=== PATIENT | male | born 1955 | race Caucasian/White ===

== ENCOUNTER 2018-09-17 14:26 | Inpatient (IN) ==
--- NOTE | 2018-09-18 20:11 | P.HP ---
History of Present Illness Service: CP Adult med Primary Care Physician: UNKNOWN Chief Complaint: Transfer for possible coronary artery bypass graft History of Present Illness: Pleasant 63-year-old relatively healthy male who generally takes no medications presents as transfer from [facility] for evaluation for multivessel coronary artery disease. Apparently he was accepted in transfer earlier by cardiovascular thoracic surgery and they requested he be admitted to the medicine service. Patient denies any chest pain or shortness of breath. He reports that his current medical course began August 25 when he was hiking in the [place] and experienced chest pressure for approximately 30 minutes. At that time he reportedly contacted his long-term general practitioner in [facility] who directed him to the ER. Patient was already in a base camp in the [place] and did not seek immediate medical attention. Symptoms resolved and he actually hiked 12 miles the next day with no symptoms. He finished his trip to the [place] and then went to [facility] where he stowed his sailboat and then came to [place] approximately 1 week ago where he began a cardiac workup. He acknowledges that he has had 2 or 3 episodes of some chest pressure since August 25. He underwent outpatient Lexiscan stress test earlier this week which was indicative of reversible ischemia in the anterior septal area. He had normal ejection fraction. He had subsequent heart catheterization done by Dr. Del Angel yesterday and patient reports that he had 3-4 vessels that had disease. I do not have the official cardiac catheter report at this point but it is noted the patient was transferred here for further evaluation by cardiovascular thoracic surgery. Again patient has been chest pain-free during this hospitalization. He was actually chest pain-free during his stress test as well as pre-and post cardiac catheterization. He reports that he walks at least 10 km/day and is quite active. He and his are planning to sail around the world soon. - Diagnosis (1) Coronary artery disease Inpatient Certification: I certify that the inpatient services were ordered in accordance with Medicare regulations governing the order. This includes certification that hospital inpatient services are reasonable and necessary and in the case of services not specified as inpatient-only under 42 CFR 419.22(n), that they are appropriately provided as inpatient services in accordance to with the 2-midnight benchmark under 43 CFR 412.3(e) Estimated Total Length of Stay (Days): 5 Plans for Post Hospital Care: Not yet determined Review of Systems Constitutional: Reports fatigue, Denies anorexia, Denies body ache(s), Denies chills, Denies daytime sleepiness, Denies excessive sweating, Denies fever(s), Denies headache(s), Denies increased appetite, Denies lack of energy, Denies malaise, Denies night sweats, Denies weakness, Denies weight gain, Denies weight loss, Denies other Eyes: Denies blind spots, Denies blurry vision, Denies bulging eyes, Denies change in vision, Denies double vision, Denies discharge, Denies dry eyes, Denies floaters, Denies irritation, Denies itchy eyes, Denies loss of vision, Denies pain, Denies requires corrective lenses, Denies sensitivity to light, Denies other Ears, Nose, Mouth, and Throat: Denies abnormal hearing, Denies bleeding gums, Denies bad breath, Denies change in voice, Denies dental pain, Denies difficulty swallowing, Denies dizziness, Denies dry mouth, Denies ear discharge , Denies ear pain, Denies facial pain, Denies headache(s), Denies hearing loss, Denies hoarseness, Denies lip swelling, Denies nosebleed, Denies mouth lesions, Denies mouth pain, Denies nasal congestion, Denies nasal discharge, Denies nasal obstruction, Denies nasal trauma, Denies neck lump, Denies neck pain, Denies nose pain, Denies pain with swallowing, Denies poor balance, Denies post nasal drip, Denies ringing in the ears, Denies sinus pain, Denies sinus pressure , Denies sore throat, Denies throat swelling, Denies tongue swelling, Denies other Cardiovascular: Reports chest pain, Reports chest pain with activity, Reports shortness of breath with activity, Denies chest pain at rest, Denies excessive sweating, Denies fainting, Denies fast heart rate, Denies foot swelling, Denies generalized swelling, Denies irregular heart rhythm, Denies leg pain with activity, Denies leg sores, Denies leg swelling, Denies lightheadedness, Denies radiating jaw, neck or arm pain, Denies rapid, pounding, or irregular heartbeat , Denies shortness of breath, Denies shortness of breath when lying down, Denies shortness of breath causing sudden awakening, Denies slow heart rate, Denies other Respiratory: Reports shortness of breath, Reports shortness of breath with activity, Denies change in phlegm color, Denies chest congestion, Denies cough, Denies coughing up blood, Denies excessive phlegm production, Denies pain on inspiration, Denies pain with cough, Denies snoring, Denies stridor, Denies wheezing, Denies other Gastrointestinal: Denies abdominal pain, Denies belching, Denies black, tarry stools, Denies bloating, Denies bright, red blood in stools, Denies change in bowel habits, Denies constant urge to pass stool, Denies change in stools, Denies coffee ground vomit, Denies constipation, Denies cramping, Denies difficulty swallowing, Denies excessive passing of gas, Denies feeling full early, Denies heartburn, Denies incontinent of stools, Denies loose stools, Denies nausea, Denies pain with swallowing, Denies vomiting, Denies vomiting blood, Denies other Genitourinary: Denies blood in semen, Denies blood in urine, Denies decreased urination, Denies difficulty urinating, Denies difficulty with ejaculations, Denies erectile dysfunction, Denies genital lesions, Denies genital pain, Denies painful urination, Denies side pain, Denies frequent nighttime urination , Denies painful ejaculations, Denies penile discharge, Denies scrotal swelling , Denies testicle lump, Denies testicle pain, Denies urinary frequency, Denies urinary hesitancy, Denies urinary incontinence, Denies urinary urgency, Denies other Musculoskeletal: Denies abnormal walking, Denies back pain, Denies body aches, Denies decreased muscle mass, Denies deformity, Denies joint pain, Denies joint swelling, Denies limited joint movement, Denies loss of height, Denies muscle cramps, Denies muscle weakness, Denies neck pain, Denies numbness, Denies radiating pain into limb, Denies stiffness, Denies tingling, Denies other Neurologic: Denies abnormal hearing, Denies abnormal movements, Denies abnormal speech, Denies abnormal walking, Denies behavioral changes, Denies burning sensations, Denies confusion, Denies dizziness, Denies fainting, Denies frequent falls, Denies headache(s), Denies lack of coordination, Denies localized weakness, Denies loss of vision, Denies memory loss, Denies numbness, Denies other visual disturbances, Denies radiating pain, Denies restless legs, Denies convulsions, Denies seizure-like activity, Denies sensory deficit, Denies tingling, Denies tingling/numbness/burning sensations, Denies tremor(s), Denies unsteadiness, Denies weakness, Denies other Psychiatric: Denies abnormal sleep pattern, Denies anxiety, Denies behavioral changes, Denies change in appetite, Denies change in sex drive, Denies confusion , Denies depression, Denies difficulty concentrating, Denies hearing things others do not hear, Denies hopelessness, Denies irritability, Denies lack of enjoyment, Denies memory loss, Denies mood swings, Denies panic attacks, Denies paranoia, Denies seeing things others do not see, Denies sensing things others do not sense, Denies tactile hallucinations, Denies thoughts of hurting/killing others, Denies thoughts of hurting/killing yourself, Denies other Endocrine: Denies cold intolerance, Denies excessive sweating, Denies flushing, Denies heat intolerance, Denies increased hunger, Denies increased thirst, Denies increased urination, Denies rapid, pounding, or irregular heartbeat, Denies other PMFSH - History History Provided By: Patient - Medical History Medical History: Medical History (Last Updated 09/18/18 @ 20:04 by Rohan Salmeron MD, PhD) H/O fracture of humerus High cholesterol Obesity Sialadenitis - Surgical History Surgical History: Surgical History (Last Updated 09/18/18 @ 17:33 by Winifred Caballero RN) Shoulder joint replacement status - Family History Family History: Family History (Last Updated 09/18/18 @ 20:05 by Rohan Salmeron MD, PhD) Brother Coronary artery disease Father Coronary artery disease Grandparent Coronary artery disease - Social History I have reviewed the patient's Social History: Yes - Tobacco History Second Hand Smoke Exposure: No Tobacco Use In Past 30 Days: No Smoking Status: Former smoker Tobacco Type: Cigarettes Packs Per Day: 1.5 Years Smoked: 15 Smoking End Date: 1992 - Alcohol History How Often Do You Have a Drink Containing Alcohol: 2 to 4 times a month - Substance Use History Substance History: No History of Abuse - Travel History History of Recent Travel: Yes Recent Travel in the [place] Within the Last 8 Weeks: Yes Recent Travel Out of the Country Within the Last 8 Weeks: No Medications and Allergies Active Medications: Active Medications Acetaminophen (Tylenol) 650 mg PO Q4H PRN PRN Reason: Temp > 100.4 Al Hydroxide/Mg Hydroxide (Milk Of Magnjulieta Liq) 30 ml PO Q12H PRN PRN Reason: Mild Constipation Ondansetron HCl (Zofran Inj) 4 mg IV.PUSH Q6H PRN PRN Reason: NAUSEA OR VOMITING Senna/Docusate Sodium (Jessica-Colace) 1 tab PO BID EDI Sodium Chloride (Ns Flush) 2 ml IV.FLUSH BID EDI Sodium Chloride (Ns Flush) 2 ml IV.FLUSH PRN PRN PRN Reason: FLUSH AFTER USING IV ACCESS Allergies Allergy/AdvReac Type Severity Reaction Status Date / Time aspirin Allergy Anaphylaxis Verified 09/18/18 17:13 NSAIDS (Non-Steroidal Allergy Anaphylaxis Verified 09/18/18 17:13 Anti-Inflamma Penicillins Allergy Anaphylaxis Verified 09/18/18 17:13 beer AdvReac Rash Uncoded 09/18/18 17:13 Home Medications Medication Instructions Recorded Confirmed Type No Known Home Medications 09/18/18 09/18/18 History Exam Vital signs: Vital Signs 09/18/18 17:29 09/18/18 19:49 Temperature 98.1 F 98.1 F Pulse Rate 67 71 Respiratory Rate 16 14 Blood Pressure 158/77 H Pulse Oximetry 96 Intake & Output 09/18/18 09/18/18 09/19/18 06:59 18:59 06:59 Intake Total 480 / 480 Balance 480 / 480 Weight 106.2 kg Intake: Oral 480 / 480 Other: Weight On Admission 106.2 kg Narrative: GENERAL: No acute distress, alert and oriented, cooperative. Muscular build. SKIN: Warm and dry. HEAD: Atraumatic. Normocephalic. EYES: Pupils equal and round. No scleral icterus. No injection or drainage. ENT: No nasal bleeding or discharge. Mucous membranes pink and moist. NECK: Trachea midline. No JVD. CARDIOVASCULAR: Regular rate and rhythm. No murmur. RESPIRATORY: No accessory muscle use. Clear to auscultation. Breath sounds equal bilaterally. GASTROINTESTINAL: Abdomen soft, non-tender, nondistended. Hepatic and splenic margins not palpable. MUSCULOSKELETAL: Extremities without clubbing, cyanosis, or edema. No obvious deformities. NEUROLOGICAL: Awake and alert. No obvious cranial nerve deficits. Motor grossly within normal limits. Five out of 5 muscle strength in the arms and legs. Normal speech. PSYCHIATRIC: Appropriate mood and affect; insight and judgment normal. Caprini VTE Risk Assessment Caprini VTE Risk Assessment: No/Low Risk (score <= 1) Caprini Risk Assessment Model: Point Value = 1 Point Value = 2 Point Value = 3 Point Value = 5 Age 41-60 Minor surgery BMI > 25 kg/m2 Swollen legs Varicose veins or History of unexplained or recurrent spontaneous Oral contraceptives or hormone replacement Sepsis (< 1 month) Serious lung disease, including pneumonia (< 1 month) Abnormal pulmonary function Acute myocardial infarction Congestive heart failure (< 1 month) History of inflammatory bowel disease Medical patient at bed rest Age 61-74 Arthroscopic surgery Major open surgery (> 45 min) Laparoscopic surgery (> 45 min) Malignancy Confined to bed (> 72 hours) Immobilizing plaster cast Central venous access Age >= 75 History of VTE Family history of VTE Factor V Leiden Prothrombin [id number] Lupus anticoagulant Anticardiolipin antibodies Elevated serum homocysteine Heparin-induced thrombocytopenia Other congenital or acquired thrombophilia Stroke (< 1 month) Elective arthroplasty Hip, pelvis, or leg fracture Acute spinal cord injury (< 1 month) Prophylaxis Regimen: Total Risk Factor Score Risk Level Prophylaxis Regimen 0-1 Low Early ambulation 2 Moderate Order ONE of the following: *Sequential Compression Device (SCD) *Heparin 5000 units SQ BID 3-4 Higher Order ONE of the following medications: *Heparin 5000 units SQ TID *Enoxaparin/Lovenox 40 mg SQ daily (WT < 150 kg, CrCl > 30 mL/min) *Enoxaparin/Lovenox 30 mg SQ daily (WT < 150 kg, CrCl > 10-29 mL/min) *Enoxaparin/Lovenox 30 mg SQ BID (WT < 150 kg, CrCl > 30 mL/min) AND/OR *Sequential Compression Device (SCD) 5 or more Highest Order ONE of the following medications: *Heparin 5000 units SQ TID (Preferred with Epidurals) *Enoxaparin/Lovenox 40 mg SQ daily (WT < 150 kg, CrCl > 30 mL/min) *Enoxaparin/Lovenox 30 mg SQ daily (WT < 150 kg, CrCl > 10-29 mL/min) *Enoxaparin/Lovenox 30 mg SQ BID (WT < 150 kg, CrCl > 30 mL/min) AND *Sequential Compression Device (SCD) Assessment and Plan - Assessment (1) Coronary artery disease Code(s): I25.10 - Atherosclerotic heart disease of [place] coronary artery without angina pectoris Status: Acute Plan: Reportedly has multiple vessel disease. Cardiovascular thoracic surgery to evaluate. Quite stable presently and actually chest pain-free during entire hospitalization. Not sure of lipid values. Provide nitro as needed. Possibly inpatient eval and d/c for performance of CABG after Pilar per d/w pt. - Plan Code Status: full Discussed Condition With: Pt and Dr Julian
[2018-09-18] MEDS: Senna/Docusate Sodium 8.6/50 MG Tablet PO SCH (20:40)
[2018-09-19 05:25] LABS: Baso % (Auto) 0.5 % (0.0-2.0); Eos # (Auto) 0.2 th/mm3 (0.0-0.4); Eos % (Auto) 1.9 % (0.0-4.0); Hematocrit 44.1 % (39.0-51.0); Hemoglobin 15.9 gm/dL (13.0-17.0); Lymph # (Auto) 3.5 th/mm3 (1.0-4.8); Lymph % (Auto) 32.2 % (9.0-44.0); Mean Corpuscular HGB Conc 35.9 % (32.0-36.0); Mean Corpuscular Hemoglobin 30.5 pg (27.0-34.0); Mean Corpuscular Volume 84.9 fL (80.0-100.0); Mean Platelet Volume 8.4 fL (7.0-11.0); Mono # (Auto) 0.8 th/mm3 (0.0-0.9); Neut # (Auto) 6.3 th/mm3 (1.8-7.7); Neut % (Auto) 58.4 % (16.0-70.0); Platelet Count 198 th/mm3 (150-450); Red Cell Distribution Width 12.9 % (11.6-17.2); White Blood Count 10.8 th/mm3 (4.0-11.0)
[2018-09-19 05:37] LABS: Calcium 8.3 mg/dL (8.5-10.1); Carbon Dioxide 22.8 meq/L (21.0-32.0); Potassium 3.6 meq/L (3.5-5.1)
[2018-09-19 05:41] LABS: Chol/HDL Ratio 7.6 Ratio
[2018-09-19] MEDS: Senna/Docusate Sodium 8.6/50 MG Tablet PO SCH ×2 (09:32→21:26)
[2018-09-19 11:32] LABS: Hemoglobin A1c 5.7 % (4.3-6.0)
--- NOTE | 2018-09-19 11:42 | XR ---
EXAM DATE: 09/19/2018 11:21 AM EST AGE/SEX: 63 years / Male INDICATIONS: Evaluate for pneumonia, pneumothorax, or communicable disease. Pre-OP for cardiac surge ry. CLINICAL DATA: This is the patient's initial encounter. Patient reports that signs and symptoms have been present for 1 day and indicates a pain score of 0/10. MEDICAL/SURGICAL HISTORY: None. None. COMPARISON: No prior exams available for comparison. FINDINGS: PA and lateral views of the chest demonstrate the lungs to be symmetrically aerated without evidence of mass, infiltrate or effusion. Mild peribronchial thickening is present in the bases. The cardiomed iastinal contours are unremarkable. Previous right shoulder arthroplasty CONCLUSION: Negative for an acute process Electronically signed by: Antoine Rubi MD Board Certified Radiologist 09/19/2018 11:41 AM EST
--- NOTE | 2018-09-19 14:23 | US ---
EXAM DATE: 09/19/2018 2:20 PM EST AGE/SEX: 63 years / Male INDICATIONS: Pre-op for cardiac surgery. CLINICAL DATA: This is the patient's initial encounter. Patient reports that signs and symptoms have been present for 1 day and indicates a pain score of 0/10. MEDICAL/SURGICAL HISTORY: . High cholesterol. Obesity. Sialadenitis. . Right shoulder replac ement. COMPARISON: No prior exams available for comparison. VELOCITY PARAMETERS: ICA/CCA Ratio: Right 1.3 , Left 0.9 ICA: Right 117 cm/sec, Left 105 cm/sec CCA: Right 93 cm/sec, Left 119 cm/sec ECA: Right 136 cm/sec, Left 91 cm/sec Vertebral: Right 57 cm/sec antegrade, Left 27 cm/sec antegrade FINDINGS: RIGHT CAROTID: There is no evidence for a hemodynamically significant carotid stenosis. Minimal int imal hyperplasia is present with scattered calcific plaque. LEFT CAROTID: There is no evidence for a hemodynamically significant carotid stenosis. Minimal inti mal hyperplasia is present with scattered calcific plaque. Flow is antegrade in both vertebral arteries. There are no ancillary masses or adenopathy. CONCLUSION: Negative examination for a hemodynamically significant carotid stenosis. Antoine Rubi MD FACR Electronically signed by: Antoine Rubi MD Board Certified Radiologist 09/19/2018 2:22 PM EST
--- NOTE | 2018-09-19 14:29 | US ---
EXAM DATE: 09/19/2018 2:23 PM EST AGE/SEX: 63 years / Male INDICATIONS: Preop cardiac surgery. CLINICAL DATA: This is the patient's initial encounter. Patient reports that signs and symptoms have been present for 1 day and indicates a pain score of 0/10. MEDICAL/SURGICAL HISTORY: . High cholesterol. Obesity. Sialadenitis. . Right shoulder surger y. COMPARISON: No prior exams available for comparison. TECHNIQUE: Venous ultrasound of both lower extremities was performed from the inguinal ligament to t he proximal calf. Real-time, color Doppler and spectral tracing, compression and augmentation techni ques were used. FINDINGS: Right Leg: Normal compression of the deep venous system from the inguinal region to the proximal paco f. No echogenic clot is seen. Normal response of the venous system to augmentation and respiration. Left Leg: Normal compression of the deep venous system from the inguinal region to the proximal calf . No echogenic clot is seen. Normal response of the venous system to augmentation and respiration. Other: None. CONCLUSION: 1. The study is negative for bilateral lower extremity deep venous thrombosis. Electronically signed by: Torsten Muñoz MD Board Certified Radiologist 09/19/2018 2:28 PM EST
--- NOTE | 2018-09-19 14:33 | US ---
EXAM DATE: 09/19/2018 2:29 PM EST AGE/SEX: 63 years / Male INDICATIONS: Preop cardiac surgery. CLINICAL DATA: This is the patient's initial encounter. Patient reports that signs and symptoms have been present for 1 day and indicates a pain score of 0/10. MEDICAL/SURGICAL HISTORY: . High cholesterol. Obesity. Sialadenitis. . Right shoulder replac ement. COMPARISON: [facility], [place] VENOUS DOPPLER LEG BI, 09/19/2018. . MEASUREMENTS: RIGHT THIGH: Proximal:__7 mm Mid:__ Non-visualized Distal:__Non-visualized LEFT THIGH: Proximal:__5 mm Mid:__3 mm Distal:__Non-visualized RIGHT CALF: Proximal:__Thrombosed Mid:__1 mm Distal:__2 mm LEFT CALF: Proximal:__1 mm Mid:__1 mm Distal:__Non-visualized FINDINGS: The venous system of the lower extremities are patent by color Doppler imaging. Measurements of the leg veins (in mm) are listed above. CONCLUSION: 1. Venous mapping as above Electronically signed by: Antoine Rubi MD Board Certified Radiologist 09/19/2018 2:31 PM EST
--- NOTE | 2018-09-19 14:33 | P.PNCV ---
- Note Subjective/Hospital Course: pt seen and evaluated, full consult to follow sts risk score discussed with pt RISK SCORES Procedure: Isolated CAB CALCULATE Risk of Mortality: 0.482% Renal Failure: 0.520% Permanent Stroke: 0.600% Prolonged Ventilation: 2.784% DSW Infection: 0.136% Reoperation: 1.495% Morbidity or Mortality: 4.716% Short Length of Stay: 69.922% Long Length of Stay: 1.513% Objective: Vital Signs - 24 hr 09/18/18 17:29 09/18/18 19:00 09/18/18 19:49 Temperature 98.1 F 98.1 F Pulse Rate 67 61 71 Respiratory Rate 16 14 Blood Pressure 158/77 H Pulse Oximetry 96 09/18/18 20:00 09/18/18 21:00 09/18/18 22:00 Temperature Pulse Rate 70 74 57 L Respiratory Rate Blood Pressure Pulse Oximetry 09/18/18 23:00 09/18/18 23:38 09/19/18 00:00 Temperature 99.0 F Pulse Rate 59 L 63 58 L Respiratory Rate 16 Blood Pressure 125/65 Pulse Oximetry 94 L 09/19/18 01:00 09/19/18 02:00 09/19/18 03:00 Temperature Pulse Rate 58 L 58 L 55 L Respiratory Rate Blood Pressure Pulse Oximetry 09/19/18 04:00 09/19/18 05:00 09/19/18 06:00 Temperature 98.0 F Pulse Rate 54 L 57 L 58 L Respiratory Rate 18 Blood Pressure 103/57 L Pulse Oximetry 97 09/19/18 08:30 09/19/18 09:32 09/19/18 10:01 Temperature 98.2 F Pulse Rate 72 73 63 Respiratory Rate 16 Blood Pressure 115/72 Pulse Oximetry 09/19/18 11:31 09/19/18 12:11 09/19/18 12:44 Temperature 98.3 F Pulse Rate 77 70 65 Respiratory Rate 16 Blood Pressure 139/63 Pulse Oximetry 09/19/18 13:39 09/19/18 14:18 Temperature Pulse Rate 66 66 Respiratory Rate Blood Pressure Pulse Oximetry Labs: Laboratory Results - last 12 hr 09/19/18 09/19/18 09/19/18 03:56 03:56 03:56 WBC 10.8 RBC 5.20 Hgb 15.9 Hct 44.1 MCV 84.9 MCH 30.5 MCHC 35.9 RDW 12.9 Plt Count 198 MPV 8.4 Neut % (Auto) 58.4 Lymph % (Auto) 32.2 Mercer % (Auto) 7.0 Eos % (Auto) 1.9 Baso % (Auto) 0.5 Neut # (Auto) 6.3 Lymph # (Auto) 3.5 Mercer # (Auto) 0.8 Eos # (Auto) 0.2 Baso # (Auto) 0.0 WBC Differential . Differential Comment Auto diff final APTT 28.9 Sodium 140 Potassium 3.6 Chloride 108 H Carbon Dioxide 22.8 Anion Gap 9 BUN 19 H Creatinine 0.92 Estimated GFR 84 L Random Glucose 95 Hemoglobin A1c Calcium 8.3 L Triglycerides 257 H Cholesterol 213 H LDL Cholesterol, Calc 134 H HDL Cholesterol 28.0 L Cholesterol/HDL Ratio 7.60 Blood Type Blood Type Recheck Antibody Screen 09/19/18 09/19/18 10:31 10:31 WBC RBC Hgb Hct MCV MCH MCHC RDW Plt Count MPV Neut % (Auto) Lymph % (Auto) Mercer % (Auto) Eos % (Auto) Baso % (Auto) Neut # (Auto) Lymph # (Auto) Mercer # (Auto) Eos # (Auto) Baso # (Auto) WBC Differential Differential Comment APTT Sodium Potassium Chloride Carbon Dioxide Anion Gap BUN Creatinine Estimated GFR Random Glucose Hemoglobin A1c 5.7 Calcium Triglycerides Cholesterol LDL Cholesterol, Calc HDL Cholesterol Cholesterol/HDL Ratio Blood Type B Positive Blood Type Recheck Required Antibody Screen Negative Result Diagrams: 09/19/18 03:56 09/19/18 03:56
[2018-09-19] MEDS ORDERED: Dextrose 50% in Water 50 ML Vial IV.PUSH PRN (15:14)
--- NOTE | 2018-09-19 15:18 | MB ---
cc: Ronda Collado APRN DATE: 09/19/2018 HISTORY OF PRESENT ILLNESS: A 63-year-old male; patient of Dr. Cortez, also Dr. Del Angel, who had recently been hiking in [place] in the [place] in July; developed some midsternal chest discomfort, felt like somebody pushing a fist into his chest. There was discomfort; lasted about 15-20 minutes. He rested, went back and continued hiking and it occurred again the next day for a short time. Due to his very high activity level, he normally walks 6 miles a day, he decided to have a complete workup and discussed this with his primary care physician. He finished his trip to the [place] and went to [place], [place], where he has on a sailboat, and then came to [place] to have this cardiac workup. The patient underwent outpatient Lexiscan, which showed evidence for inducible ischemia in the anterolateral apical segment. Ejection fraction of 65%. There was some mild anterior hypokinesis. He also underwent an echocardiogram, which showed some mild left ventricular hypertrophy, mild mitral regurgitation, trace aortic insufficiency. He then underwent elective cardiac catheterization by Dr. Del Angel, which showed 4-vessel coronary artery disease; the LAD had an 80% stenosis in the proximal portion; the circumflex had a 99% stenosis in the mid AV-groove portion which was very small; the RCA had a mid portion 95% stenosed. There was also a 90% stenosis in the diagonal branch. The patient was transferred to our facility for cardiothoracic surgery. PAST MEDICAL HISTORY: Includes hyperlipidemia mixed with hypertension. MEDICATIONS: The patient takes no regular medication. SURGICAL HISTORY: Includes colonoscopy, open reduction internal fixation of the right humerus following a fracture, salivary gland surgery, tonsillectomy, vasectomy. ALLERGIES: INCLUDE ASPIRIN, WHICH CAUSES ANAPHYLAXIS AND RASH; PENICILLIN CAUSES RASH. FAMILY HISTORY: No premature coronary artery disease. SOCIAL HISTORY: The patient is , 3 children. Prior history of tobacco abuse, quit 25 years ago. Rare alcohol. Very active; he is a retired electrical apprentice. REVIEW OF SYSTEMS: GENERAL: No night sweats, fever, heat and cold intolerance. SKIN: No psoriasis, itching or hives. HEENT: No blurred vision, hearing loss. RESPIRATORY: Denies shortness of breath. CARDIOVASCULAR: As above in HPI. GASTROINTESTINAL: No diarrhea or vomiting. GENITOURINARY: No burning, frequency, urgency. ENDOCRINOLOGY: No history of diabetes or hypothyroidism. NEUROLOGIC: No history of TIA, CVA or seizure disorder. PHYSICAL EXAMINATION: VITAL SIGNS: Blood pressure 140/60, heart rate of 66, temperature max 98.3. GENERAL: Patient is awake, alert, in no acute distress. HEENT: Head is normocephalic, atraumatic. Pupils equal and reactive. Oral mucosa pink, moist. NECK: Supple. No JVD. CARDIOVASCULAR: Heart sounds S1, S2. Regular rate and rhythm. No audible rubs, murmurs, or gallops. LUNGS: Clear to auscultation. No wheezes, rales or rhonchi. ABDOMEN: Soft, nontender. No masses or organomegaly. EXTREMITIES: No cyanosis, clubbing or edema. SKIN: No rashes or lesions noted. LABORATORY DATA: Lab work shows hemoglobin 15, hematocrit of 44, white cell count of 10, platelet count of 198. Sodium 140, potassium 3.6, BUN of 19, creatinine 0.92, hemoglobin A1c 5.7, triglycerides 257, cholesterol 213, LDL 134, HDL 28. PTT of 28. INR pending. IMPRESSION: This is a 63-year-old male with multivessel coronary artery disease. The cardiac medications have been evaluated by Dr. Liz Aquino. PLAN: Will be for bypass grafting to the LAD, RCA and the diagonal. Procedures, alternatives, and risks have been discussed with the patient. The patient is agreeable to proceed. We will plan for the surgery in the a.m. He will need to be maintained on strict cholesterol modification and blood pressure control. Further plan as per Dr. Aquino. RUSTY Amador MD JRT/frederick , 02:43 PM , 02:55 PM
[2018-09-19 15:51] LABS: INR 1.1 Ratio
[2018-09-19] MEDS ORDERED: Sodium Chlor 0.9% Inj 77.5 ML, Papaverine Inj 60 MG, Nitroglycerin Inj 100 MCG, dilTIAZ... IRRIGATION SCH ×3 (16:00)
[2018-09-19] MEDS ORDERED: Sodium Chloride 0.9% Irr Bot 500 ML, ceFAZolin Inj 500 MG IRRIGATION SCH ×2 (16:00)
[2018-09-19] MEDS ORDERED: ceFAZolin Inj 2,000 MG in Sodium Chlor 0.9% Inj 80 ML IV.SIG SCH (16:00)
[2018-09-19] MEDS ORDERED: Metoprolol Tartrate 25 MG Tablet PO SCH (16:00)
[2018-09-19] MEDS ORDERED: Chlorhexidine 4% Topical 120 APPLIC/120 ML Bottle TOPICAL SCH (16:00)
[2018-09-19] MEDS ORDERED: Insulin Regular (For Infusion) 100 UNIT in Sodium Chlor 0.9% Inj 99 ML IV.CONT PRN (16:00)
[2018-09-19 16:59] LABS: Bilirubin,Urine Negative (Negative); Clarity,Urine Clear (Clear); Color,Urine Yellow (Yellw/Straw); Glucose,Urine (UA) Negative (Negative); Leukocyte Esterase,Urine Negative (Negative); Mucus,Urine Few /lpf (Occasional); Nitrite,Urine Negative (Negative)
[2018-09-19] MEDS ORDERED: ceFAZolin 2 GM IV; once IV.SIG SCH (17:00)
[2018-09-19 17:09] LABS: Albumin 3.6 g/dL (3.4-5.0)
[2018-09-19 17:10] LABS: Total Protein 7.3 g/dL (6.4-8.2)
--- NOTE | 2018-09-19 17:27 | P.PNIM ---
Subjective Interval history: Patient offers no complaints at this time Plan for CABG in AM Physical Exam Vital signs: Last Vital Signs Temp 98.1 F 09/19/18 17:21 Pulse 65 09/19/18 17:21 Resp 18 09/19/18 17:21 BP 127/67 09/19/18 17:21 Pulse Ox 97 09/19/18 04:00 Narrative: GENERAL: This is a well-nourished, well-developed patient, in no apparent distress. CARDIOVASCULAR: Regular rate and rhythm RESPIRATORY: Clear to auscultation. Breath sounds equal bilaterally. No wheezes , rales, or rhonchi. GASTROINTESTINAL: Abdomen soft, non-tender, nondistended. Normal active bowel sounds MUSCULOSKELETAL: Extremities without clubbing, cyanosis, or edema. NEURO: Alert & Oriented x4 to person, place, time, situation. Moves all ext x4 Results Labs CBC & Chem 7: 09/22/18 04:10 09/22/18 04:10 Assessment and Plan Assessment (1) Coronary artery disease: Code(s): I25.10 - Atherosclerotic heart disease of [place] coronary artery without angina pectoris Status: Acute Plan Coronary artery disease - The patient underwent outpatient Lexiscan, which showed evidence for inducible ischemia in the anterolateral apical segment. Ejection fraction of 65 %. There was some mild anterior hypokinesis. - He also underwent an echocardiogram, which showed some mild left ventricular hypertrophy, mild mitral regurgitation, trace aortic insufficiency. - He then underwent elective cardiac catheterization by Dr. Del Angel, which showed 4-vessel coronary artery disease; the LAD had an 80% stenosis in the proximal portion; the circumflex had a 99% stenosis in the mid AV-groove portion which was very small; the RCA had a mid portion 95% stenosed. There was also a 90% stenosis in the diagonal branch. - The patient was transferred to our facility for cardiothoracic surgery - Cardiovascular thoracic surgery evaluated and plan for CABG in AM - continuous telemetry - Provide nitro as needed, patient pain free at this time Mixed Hyperlipidemia with CAD - Triglycerides 257, total cholesterol 213, LDL 134, HDL 28 - will start atorvastatin 40 mg daily DVT prophylaxis with SCD Attending Attestation The exam, history, and the medical decision-making described in the above note were completed with the assistance of the mid-level provider. I reviewed and agree with the findings presented. I attest that I had a [id number] encounter with the patient on the same day, and personally performed and documented my assessment and findings in the medical record. Patient examined. Assessment and plan formulated with Charlette Thrasher PA-C. I agree with the above. Progress Note: Quality VTE Deep Vein Thrombosis/Pulmonary Embolism Present on Admission: No _ (1) Coronary artery disease Qualifiers: Associated angina: Coronary Disease-Associated Artery/Lesion type: [place] vs. transplanted heart:
[2018-09-20] MEDS ORDERED: Metoprolol Tartrate 25 MG Tablet PO ONE (05:57)
[2018-09-20] MEDS ORDERED: Chlorhexidine Gluconate 2% 1 Pack (2 Cloths) TOPICAL ONE (05:57)
[2018-09-20] MEDS ORDERED: Sodium Chlor 0.9% Inj 500 ML IV.SIG SCH (06:00)
[2018-09-20] MEDS ORDERED: Heparin - SQ 10,000 UNITS/ML Vial ONE ×2 (06:33→06:34)
[2018-09-20] MEDS ORDERED: Ketamine Inj 500 MG/10 ML Vial ONE (06:44)
[2018-09-20] MEDS: Senna/Docusate Sodium 8.6/50 MG Tablet PO SCH ×2 (08:14→21:05)
[2018-09-20] MEDS ORDERED: Sodium Chloride 0.9% Irr Bot 1,000 ML, Vancomycin Inj 1,000 MG IRRIGATION ONE ×2 (09:00)
[2018-09-20] MEDS ORDERED: hydrALAZINE HCl Inj 20 MG/ML Vial IV.PUSH PRN (11:58)
[2018-09-20] MEDS ORDERED: Metoprolol Inj 5 MG/5 ML Vial IV.PUSH PRN (11:58)
[2018-09-20] MEDS ORDERED: Dextrose 50% in Water 50 ML Vial IV.PUSH PRN (11:58)
[2018-09-20] MEDS ORDERED: Insulin Regular (For Infusion) 100 UNIT in Sodium Chlor 0.9% Inj 99 ML IV.CONT PRN (11:58)
[2018-09-20] MEDS ORDERED: Calcium Chloride Inj 1 GM/10 ML Syringe IV.PUSH PRN (11:58)
[2018-09-20] MEDS ORDERED: Potassium Chlor 20 mEq Premix 20 MEQ/100 ML PIGGYBACK IV.SIG PRN ×2 (11:58)
[2018-09-20] MEDS ORDERED: Ketorolac Inj 30 MG/ML (IVP) Vial IV.PUSH PRN (11:58)
[2018-09-20] MEDS ORDERED: Post-op Orders (for Pharmacy) OTHER STA (11:58)
[2018-09-20] MEDS ORDERED: Clevidipine Inj 25 MG/50 ML VIAL IV.CONT PRN (11:58)
[2018-09-20] MEDS ORDERED: Magnesium Sulfate Inj 2 GM in Sodium Chlor 0.9% Inj 96 ML IV.SIG PRN ×4 (11:58)
[2018-09-20] MEDS ORDERED: Dexmedetomidine Inj 200 MCG in Sodium Chlor 0.9% Inj 48 ML IV.CONT PRN (11:58)
[2018-09-20] MEDS ORDERED: Phenylephrine Inj 40 MG in Sodium Chlor 0.9% Inj 496 ML IV.CONT PRN (11:58)
[2018-09-20] MEDS ORDERED: Albumin Human 5% Inj 250 ML IV.SIG PRN (12:05)
--- NOTE | 2018-09-20 12:07 | P.OP ---
Date of procedure: 09/20/18 Anesthesia: MIKEA Surgeon: Liz Aquino MD Operation and Findings: PREPROCEDURE DIAGNOSES 1. Severe Multi Vessel Coronary Artery Disease. 2. Unstable Angina POSTPROCEDURE DIAGNOSES Same SURGICAL PROCEDURE 1. Urgent Off-pump Coronary Artery Bypass Grafting x [3] with Left Internal Mammary Artery (LUU) to Left Anterior Descending (LAD), reverse saphenous vein graft to Diagonal 1 Branch of the LAD, reverse saphenous vein graft to the distal [Right Coronary artery] 2. [Left] Leg Endoscopic Vein [place] 3. Intraoperative Vein Mapping. SURGEON Liz Aquino MD CORONER TECHNICIAN [BREANNE Acharya] ANESTHESIA General endotracheal SWEATBAND SEPARATOR Sharad Pittman, GEORGIA Rodriguez MD PREPARATION ChloraPrep. COUNTS Needle, sponge, and instrument counts were correct. DRAINS Two 32-Qatari mediastinal tubes. COMPLICATIONS None. INDICATIONS FOR PROCEDURE The patient is a 63-year-old presenting with chest pain. Patient was noted to have multi vessel coronary artery disease. The patient is being brought to the operating room for surgical revascularization therapy. PROCEDURE Patient was brought to the operating room and placed supine on the OR table. Following the induction of adequate general endotracheal anesthesia and placement of appropriate monitoring devices, intraoperative vein mapping was performed which revealed [good]-caliber conduit in bilateral lower extremities. The patient was then prepped and draped in standard sterile fashion. Next, 2500 units of intravenous heparin was given. The [left] greater saphenous vein was harvested endoscopically. This appeared to be a useable-caliber conduit. Simultaneously, a median sternotomy was performed and the left internal mammary artery dissected free off the posterior sternal table. The patient was systemically heparinized and anticoagulation monitored by serial ACT measurements. The internal mammary artery had [excellent] pulsatile flow in it and was a [good]-caliber conduit. The pericardium was then divided in the midline, the cradle created and targets analyzed. At this point, all anastomoses were performed in a beating-heart fashion using the [employer] stabilizing system. The left internal mammary artery was anastomosed to the mid LAD ([2]mm) in an end-to-side fashion using 7-0 Prolene. Of note, the LAD was a diffusely diseased calcific plaques throughout. Segment of saphenous vein graft was then anastomosed to the D1 (1.5 mm) in an end-to-side fashion using 7- 0 Prolene. The final segment was anastomosed to the RCA (2.25mm) in an end-to- side fashion using 7-0 Prolene. The circumflex territory was explored extensive the and no viable targets were found. Very small (<1 mm) OM1 was seen emerging from the AV groove which was too small and not bypass ball. The proximal anastomoses were then constructed to the ascending aorta in a running manner using 6-0 Prolene. All anastomotic sites were inspected and appeared to be hemostatic and patent. Protamine solution was given. Strict hemostasis was assured. The closure was undertaken. 2 chest tubes were placed. The pericardium was reapproximated in the midline. The sternum was approximated using sternal wires. The muscular and fascial layer were then closed in 3 layers. The endoscopic vein harvest site was closed in 2 layers. The patient tolerated the procedure well and was transferred to CVICU in stable condition.
[2018-09-20] MEDS ORDERED: RESP: Racemic Epinephrine 2.25% 0.5 ML Neb NEB SCH (12:30)
[2018-09-20] MEDS ORDERED: fentaNYL Citrate Inj 250 MCG/5 ML Ampul ONE (12:36)
[2018-09-20] MEDS: fentaNYL Citrate Inj 100 MCG/2 ML Ampul IV.PUSH PRN ×8 (12:45→23:36)
--- NOTE | 2018-09-20 13:00 | XR ---
EXAM DATE: 09/20/2018 12:42 PM EST AGE/SEX: 63 years / Male INDICATIONS: Postop CABG. CLINICAL DATA: This is the patient's initial encounter. Patient reports that signs and symptoms have been present for 1 day and indicates a pain score of Nonresponsive. MEDICAL/SURGICAL HISTORY: None. None. COMPARISON: [facility] [place], CHEST 2V PA&LAT, 09/19/2018. . FINDINGS: The patient is status post sternotomy. The ET tube, NG tube, left internal jugular central line, left chest tube, and mediastinal drain are well placed. A pneumothorax is not seen. The heart size is no rmal. The lungs are grossly clear. There is a right shoulder prosthesis. CONCLUSION: Good appearance of the chest following sternotomy with the tubes and lines all appear well placed. Electronically signed by: Maximus Huddleston MD Board Certified Radiologist 09/20/2018 12:59 PM EST
[2018-09-20] MEDS: Calcium Chloride Inj 1 GM in Sodium Chlor 0.9% Inj 100 ML IV.SIG PRN ×2 (13:12→16:17)
[2018-09-20] MEDS: Potassium Chlor 20 mEq Premix 20 MEQ/100 ML PIGGYBACK IV.SIG PRN ×2 (13:13→16:00)
[2018-09-20] MEDS: Vancomycin Inj 1,500 MG in Sodium Chlor 0.9% Inj 250 ML IV.SIG SCH (19:28)
[2018-09-20] MEDS: Amiodarone 200 MG Tablet PO SCH (22:28)
[2018-09-21] MEDS: Calcium Chloride Inj 1 GM in Sodium Chlor 0.9% Inj 100 ML IV.SIG PRN (00:04)
[2018-09-21] MEDS: Potassium Chlor 20 mEq Premix 20 MEQ/100 ML PIGGYBACK IV.SIG PRN ×2 (00:05→07:08)
[2018-09-21] MEDS: Morphine Inj 4 MG/ML Vial IV.PUSH PRN ×4 (02:00→04:00)
--- NOTE | 2018-09-21 05:14 | XR ---
EXAM DATE: 09/21/2018 4:12 AM EST AGE/SEX: 63 years / Male INDICATIONS: Shortness of breath, possible pneumothorax. CLINICAL DATA: This is the patient's subsequent encounter. Patient reports that signs and symptoms h ave been present for 4 - 6 days and indicates a pain score of 6/10. MEDICAL/SURGICAL HISTORY: Hypercholesterolemia. CABG. COMPARISON: [facility], CHEST 1V SINGLE AP, 09/20/2018. . FINDINGS: Single view the chest centered the right IJ central line in good position. Mediastinal drain and left chest tube are in good position. Lungs are relatively clear except for some bibasilar areas of conso lidation likely atelectasis. There is no visible pneumothorax. There is a right shoulder hemiarthropl asty. CONCLUSION: The patient has numerous sternal wires. No visible pneumothorax. Mediastinal drain, right IJ central line and left-sided chest tube are in good position Electronically signed by: Chance Damon MD Board Certified Radiologist 09/21/2018 5:12 AM EST
[2018-09-21 05:45] LABS: Hematocrit 37.4 % (39.0-51.0); Mean Corpuscular HGB Conc 34.9 % (32.0-36.0); Mean Corpuscular Hemoglobin 29.8 pg (27.0-34.0); Mean Corpuscular Volume 85.5 fL (80.0-100.0); Mean Platelet Volume 8.1 fL (7.0-11.0); Platelet Count 192 th/mm3 (150-450); Red Blood Count 4.38 mil/mm3 (4.50-5.90); Red Cell Distribution Width 12.8 % (11.6-17.2); White Blood Count 14.7 th/mm3 (4.0-11.0)
[2018-09-21 06:13] LABS: Anion Gap 11 meq/L (5-15); Blood Urea Nitrogen 12 mg/dL (7-18); Calcium 8.3 mg/dL (8.5-10.1); Carbon Dioxide 21.9 meq/L (21.0-32.0); Chloride 105 meq/L (98-107); Glomerular Filtration Rate Greater Than 89 mL/min (>89); Glucose,Random 113 mg/dL (74-106); Magnesium 1.6 mg/dL (1.5-2.5); Sodium 138 meq/L (136-145)
[2018-09-21] MEDS: Vancomycin Inj 1,500 MG in Sodium Chlor 0.9% Inj 250 ML IV.SIG SCH ×2 (09:07→19:45)
[2018-09-21] MEDS: Amiodarone 200 MG Tablet PO SCH ×2 (09:07→21:10)
[2018-09-21] MEDS: fentaNYL Citrate Inj 100 MCG/2 ML Ampul IV.PUSH PRN ×5 (09:08→19:46)
[2018-09-21] MEDS: Senna/Docusate Sodium 8.6/50 MG Tablet PO SCH ×2 (09:08→21:09)
--- NOTE | 2018-09-21 09:29 | P.PNCV ---
- Note Subjective/Hospital Course: 63-year-old pleasant gentleman presenting with chest pain on exertion. Cardiac catheterization revealed multivessel coronary disease. Patient was transferred to [place] for further management. 09/20 SURGICAL PROCEDURE 1. Urgent Off-pump Coronary Artery Bypass Grafting x [3] with Left Internal Mammary Artery (LUU) to Left Anterior Descending (LAD), reverse saphenous vein graft to Diagonal 1 Branch of the LAD, reverse saphenous vein graft to the distal [Right Coronary artery] 2. [Left] Leg Endoscopic Vein [place] 3. Intraoperative Vein Mapping. 09/21 Clinically and hemodynamic is stable Evidence of pericarditis on EKG Maintain chest tube to drainage Transfer to [facility] Objective: Vital Signs - 24 hr 09/20/18 12:20 09/20/18 12:30 09/20/18 13:15 Temperature 96.2 F L 96.5 F L Pulse Rate 64 Respiratory Rate 20 15 Blood Pressure 112/64 Pulse Oximetry 99 99 09/20/18 13:38 09/20/18 15:00 09/20/18 15:55 Temperature 98.8 F 98.8 F Pulse Rate 62 Respiratory Rate 12 Blood Pressure 93/57 L Pulse Oximetry 99 94 L 09/20/18 16:27 09/20/18 17:11 09/20/18 18:25 Temperature Pulse Rate 63 Respiratory Rate 18 14 15 Blood Pressure Pulse Oximetry 09/20/18 19:00 09/20/18 22:22 09/20/18 23:00 Temperature 98.6 F Pulse Rate 68 71 76 Respiratory Rate 24 18 Blood Pressure 112/62 Pulse Oximetry 96 95 09/20/18 23:43 09/21/18 03:00 09/21/18 04:23 Temperature 98.3 F 98.3 F Pulse Rate 69 68 Respiratory Rate 18 22 Blood Pressure 104/68 Pulse Oximetry 96 09/21/18 07:00 Temperature 98.3 F Pulse Rate 68 Respiratory Rate 14 Blood Pressure 120/69 Pulse Oximetry 98 Labs: Laboratory Results - last 12 hr 09/20/18 09/20/18 09/21/18 22:33 23:46 01:24 WBC RBC Hgb Hct MCV MCH MCHC RDW Plt Count MPV Sodium Potassium Chloride Carbon Dioxide Anion Gap BUN Creatinine Estimated GFR POC Glucose 136 H 121 H 88 Random Glucose Calcium Magnesium 12/23/18 12/23/18 12/23/18 02:49 04:10 05:20 WBC 14.7 H RBC 4.38 L Hgb 13.0 Hct 37.4 L MCV 85.5 MCH 29.8 MCHC 34.9 RDW 12.8 Plt Count 192 MPV 8.1 Sodium Potassium Chloride Carbon Dioxide Anion Gap BUN Creatinine Estimated GFR POC Glucose 80 109 Random Glucose Calcium Magnesium 09/21/18 09/21/18 09/21/18 05:20 08:01 09:06 WBC RBC Hgb Hct MCV MCH MCHC RDW Plt Count MPV Sodium 138 Potassium 4.0 Chloride 105 Carbon Dioxide 21.9 Anion Gap 11 BUN 12 Creatinine 0.76 Estimated GFR Greater than 89 POC Glucose 118 H 155 H Random Glucose 113 H Calcium 8.3 L Magnesium 1.6 Result Diagrams: 09/21/18 05:20 09/21/18 05:20
[2018-09-21] MEDS ORDERED: Bisacodyl 10 MG Supp RECTAL PRN (09:31)
[2018-09-21] MEDS ORDERED: Sod Phosphate/Sod Biphosphate (Adult) Enema 133 ML Bottle RECTAL PRN (09:31)
[2018-09-21] MEDS: Insulin NovoLOG Aspart Correctional Sugar Inj SQ SCH ×4 (10:06→21:08)
[2018-09-21] MEDS: Metoprolol Tartrate 25 MG Tablet PO SCH ×2 (10:08→21:09)
--- NOTE | 2018-09-21 13:01 | P.DIET ---
Nutritional Evaluation Type of nutrition evaluation: initial [place] [facility] [facility] [place]. Pt s/p CABG x 3 on 09/20. Patient Navigator to provide education. Consult RD if complexities with diet education arises
[2018-09-21] MEDS: Docusate Sodium 100 MG Capsule PO SCH (21:09)
--- NOTE | 2018-09-22 01:52 | ECG ---
Date Performed: 09/21/2018 Time Performed: 04:15:38 PTAGE: 63 years EKG: Sinus rhythm ST elevations noted anterior and laterally, probable pericarditis picture, can not rule out acute my ocardial infarction, clinical correlation Abnormal ECG NO PREVIOUS TRACING DOCTOR: Nacho Piedra Interpretating Date/Time 09/22/2018 01:52:32
[2018-09-22] MEDS: Insulin NovoLOG Aspart Correctional Sugar Inj SQ SCH ×6 (02:31→22:57)
[2018-09-22 05:14] LABS: Baso % (Auto) 0.3 % (0.0-2.0); Eos % (Auto) 0.3 % (0.0-4.0); Hematocrit 34.7 % (39.0-51.0); Hemoglobin 12.1 gm/dL (13.0-17.0); Lymph # (Auto) 1.5 th/mm3 (1.0-4.8); Lymph % (Auto) 12.2 % (9.0-44.0); Mean Corpuscular HGB Conc 34.9 % (32.0-36.0); Mean Corpuscular Hemoglobin 30.1 pg (27.0-34.0); Mean Corpuscular Volume 86.2 fL (80.0-100.0); Mean Platelet Volume 8.3 fL (7.0-11.0); Mono % (Auto) 8.4 % (0.0-8.0); Neut # (Auto) 9.7 th/mm3 (1.8-7.7); Neut % (Auto) 78.8 % (16.0-70.0); Platelet Count 172 th/mm3 (150-450); Red Blood Count 4.03 mil/mm3 (4.50-5.90); Red Cell Distribution Width 12.5 % (11.6-17.2); White Blood Count 12.3 th/mm3 (4.0-11.0)
[2018-09-22 05:23] LABS: Calcium 8.1 mg/dL (8.5-10.1); Carbon Dioxide 27.1 meq/L (21.0-32.0); Magnesium 1.8 mg/dL (1.5-2.5); Potassium 4.1 meq/L (3.5-5.1)
[2018-09-22] MEDS: Docusate Sodium 100 MG Capsule PO SCH ×2 (08:37→20:43)
[2018-09-22] MEDS: Metoprolol Tartrate 25 MG Tablet PO SCH ×2 (08:37→20:42)
[2018-09-22] MEDS: Multivitamin/Minerals Therapeutic Tablet PO SCH (08:38)
[2018-09-22] MEDS: Senna/Docusate Sodium 8.6/50 MG Tablet PO SCH ×2 (08:38→20:43)
[2018-09-22] MEDS: Amiodarone 200 MG Tablet PO SCH ×2 (08:38→20:41)
[2018-09-22] MEDS: Polyethylene Glycol 3350 17 GM Packet PO SCH (08:38)
[2018-09-22] MEDS: Mag Sulf 1 gm/100 ml Premix 100 ML IV.SIG SCH ×2 (12:07→13:32)
--- NOTE | 2018-09-22 12:22 | P.DCO ---
- Diagnosis (1) S/P CABG x 3 Status: Acute (2) Hyperlipidemia Status: Chronic (3) Hypertension Status: Chronic - Home Health Nursing Order: Medical education, Signs/symptoms of disease process, Wound care and dressing changes, Nursing assessment with vital signs Instructions: Heart and Vascular Surgery patients *Special attention to sternal dressing Mandatory frequency Assess and evaluation, 4 days in a row The next week 3X week 2 times a week for 4 weeks 1 time a week for 5 weeks Schedule Heart and Vascular patients for full 60 day certification period Initial visit Review Open Heart Surgery Discharge Instructions (Sternal precautions, Activity, Elastic hose, Incision care, Driving, Incentive spirometry, Smoking, [place], Work and other) Need Betadine to paint incision Medication reconciliation Importance of follow up care/ check on appointments Make calendar record temperature daily When to call [facility] Home nurse, review instructions, phone list Incentive Spirometry, demonstration Visit 1- Begin discharge instruction for patient family and/ or caregiver using teach back method- Signs and symptoms of infection Disease characteristics Medicines and side effects Foods and nutrition/ appetite Infection control/ hand washing/ hygiene Visit 2- Continue teaching Discharge instructions- include additional information on smoking cessation , sternal dressing (sternal vac) Visit 3- Continue teaching- Cough and deep breathing, incision monitoring. Choose my plate Visit 4- Continue teaching- Discuss limitations Discuss how they are feeling Discuss progress toward goals Remaining visits- continue teaching and monitoring For any questions please call : Saturday 8am-5pm Heart & Vascular Surgery Office ( Dr. Aquino & Dr. Olea), After Hours / Nights (5pm -8am) Weekends and Holidays Please call [facility] Cardiac Intermediate Care Unit (CIC) Charge Nurse PREVENA Single Use Negative Wound Therapy System Caregiver Instruction Sheet 1. A Prevena dressing system was applied to the chest incision during surgery , to promote wound healing. It works via a suction device (negative pressure wound therapy) to remove low to moderate levels of exudate (drainage) and infectious materials. We recommend that the device stay in place for up to seven days, from day of surgery. 2. Day of Surgery___/ Day of Removal ___09/27/18 3. The dressing should only be removed by a health ocular care technologist. Please arrange removal of device to coincide with Home Health visit and or with Nursing staff at Rehab 4. If skin reddening or irritation of skin occurs, or excessive drainage, please notify the Cardiovascular Surgeons office at [phone]. 5. Light showering is permissible; however the pump should be disconnected and placed in safe location, where it will not get wet. The dressing should not be exposed to direct spray or submerged in water. No bath tub / shower only. Ensure the end of the tubing attached to the dressing is facing down so that water does not enter the top of the tube. 6. To remove Prevena dressing: press purple button to turn off device / remove the suction. Then disconnect the tubing from the pump. The fixation strips should be stretched away from the skin and the dressing lifted at one corner and peeled back until it has been fully removed. 7. After removal, it is ok to shower daily using liquid dial soap and clean wash cloth, rinse and pat dry, and leave incision open to air dry. For any concerns regarding Prevena dressing, and or wounds, please contact Maryanne Adames, patient navigator at [phone] or notify the Cardiovascular Surgeons office at [phone]. Incentive spirometry Q1 hr x 10, while awake, also use acapella device hourly whole awake Sternal Breast Bone Precautions: NO pushing or pulling, ( pt must use sternal pillow to support chest with all activities and with coughing ( takes up to 3 months breast bone to heal ) Daily incision care: ok to shower daily, no tub bath. Wash all incisions with liquid dial soap, clean wash cloth to each site, rinse and pat dry. Observe for any signs of infection, such as drainage which is dark yellow, loyd, green or foul smelling. Immediately report to the surgeon any drainage from the chest incision, or legs, and for any abnormal drainage from the chest tube sites. Notify surgeon if any temp >101.5 degrees F. When specialty dressing removed/ or if you do not have one, continue to shower daily as above, then rinse and pat incision dry and paint with betadine daily x 5 days. Allow steri strips to fall off if you have any. Avoid lotions, creams, salves, oils, etc. for the first month Please see attached forms for additional instructions regarding post Open Heart specialty wound vacuum dressings. SPENCER or Prevena , Dressing to be removed by Nursing staff on __09/27/18 F/U appointment: as per DC instructions: PCP in 2 weeks, CV surgeon 2 weeks, Medical Radiation Dosimetrist 3-4 weeks For any questions regarding incisions/ dressing / meds / post op care or above Symptoms, Saturday 8am-5pm Heart & Vascular Surgery Office ( Dr. Aquino & Dr. Olea), After Hours / Nights (5pm -8am) Weekends and Holidays Please call [facility] Cardiac Intermediate Care Unit (CIC) Charge Nurse - Case Management Consult Case Management Consult-Home Health: Yes - Certification I have seen patient Tee Aguero on 09/22/18. My clinical findings support the need for the requested home health care services because: Deconditioned with increased weakness I certify that my clinical findings support that this patient is homebound because: Post-op weakness
[2018-09-23] MEDS: Insulin NovoLOG Aspart Correctional Sugar Inj SQ SCH ×4 (02:57→14:32)
[2018-09-23] MEDS: Acetaminophen 325 MG Tablet PO PRN ×2 (05:42→10:35)
[2018-09-23] MEDS: Senna/Docusate Sodium 8.6/50 MG Tablet PO SCH (08:39)
[2018-09-23] MEDS: Metoprolol Tartrate 25 MG Tablet PO SCH (08:39)
[2018-09-23] MEDS: Multivitamin/Minerals Therapeutic Tablet PO SCH (08:39)
[2018-09-23] MEDS: Docusate Sodium 100 MG Capsule PO SCH (08:39)
[2018-09-23] MEDS: Polyethylene Glycol 3350 17 GM Packet PO SCH (08:40)
[2018-09-23] MEDS: Amiodarone 200 MG Tablet PO SCH (08:40)
--- NOTE | 2018-09-23 10:43 | P.PNCV ---
- Note Subjective/Hospital Course: 63-year-old pleasant gentleman presenting with chest pain on exertion. Cardiac catheterization revealed multivessel coronary disease. Patient was transferred to [place] for further management. 09/20 SURGICAL PROCEDURE 1. Urgent Off-pump Coronary Artery Bypass Grafting x [3] with Left Internal Mammary Artery (LUU) to Left Anterior Descending (LAD), reverse saphenous vein graft to Diagonal 1 Branch of the LAD, reverse saphenous vein graft to the distal [Right Coronary artery] 2. [Left] Leg Endoscopic Vein [place] 3. Intraoperative Vein Mapping. 09/21 Clinically and hemodynamic is stable Evidence of pericarditis on EKG Maintain chest tube to drainage [facility]23 Doing well Weaning O2 as tolerated Possible discharge later today or in a.m. Objective: Vital Signs - 24 hr 09/22/18 11:00 09/22/18 12:00 09/22/18 13:00 Temperature 98.6 F Pulse Rate 74 80 78 Respiratory Rate 16 Blood Pressure 108/66 Pulse Oximetry 95 09/22/18 13:34 09/22/18 14:00 09/22/18 15:00 Temperature 99.2 F Pulse Rate 71 78 82 Respiratory Rate 16 16 Blood Pressure 106/59 L Pulse Oximetry 95 09/22/18 16:00 09/22/18 17:00 09/22/18 18:00 Temperature Pulse Rate 82 76 80 Respiratory Rate Blood Pressure Pulse Oximetry 09/22/18 19:00 09/22/18 20:00 09/22/18 20:28 Temperature 98.5 F Pulse Rate 81 78 82 Respiratory Rate 18 18 Blood Pressure 114/86 Pulse Oximetry 92 L 95 09/22/18 21:00 09/22/18 22:00 09/22/18 23:00 Temperature 98.9 F Pulse Rate 58 L 66 58 L Respiratory Rate 20 Blood Pressure 110/61 Pulse Oximetry 92 L 09/23/18 00:00 09/23/18 01:00 09/23/18 02:00 Temperature Pulse Rate 56 L 52 L 64 Respiratory Rate Blood Pressure Pulse Oximetry 09/23/18 03:00 09/23/18 04:00 09/23/18 06:00 Temperature 97.8 F Pulse Rate 75 52 L 75 Respiratory Rate 18 Blood Pressure 109/63 Pulse Oximetry 94 L 09/23/18 07:00 09/23/18 07:52 09/23/18 07:53 Temperature 98.4 F Pulse Rate 68 75 91 H Respiratory Rate 18 18 Blood Pressure 107/55 L Pulse Oximetry 94 L 93 L 09/23/18 08:26 Temperature Pulse Rate Respiratory Rate Blood Pressure Pulse Oximetry 93 L Labs: Laboratory Results - last 12 hr 09/22/18 09/23/18 09/23/18 23:41 05:38 10:35 POC Glucose 119 H 108 120 H Result Diagrams: 09/22/18 04:10 09/22/18 04:10
== END 2018-09-23 15:48 | disposition home health service (06) ==
LOC: HCPC 09-18 17:08 → HCVI 09-20 08:03 → HCPC 09-21 10:54
PROVIDERS: ADMIT Thoracic Surgery (Cardiothoracic Vascular Surgery); ATTEND Thoracic Surgery (Cardiothoracic Vascular Surgery)